=== PATIENT | male | born 1960 | race Caucasian/White ===

== ENCOUNTER 2016-09-08 07:07 | Day surgery (SDC) | payer OTHER ==
[~2016-09-08] VITALS: Ht 181.6 cm; Wt 72.6 kg
[~2016-09-08 07:07] MED LIST: ACTOS45 MG PO; ALDOMET250 MG PO; ALLOPURINOL100 MG PO; AMARYL4 MG PO; CALCIUM ACETAT667 MG PO; CARDIZEM CD300 MG PO; CLINDAMYCIN HC300 MG PO; COLCHICINE0.6 MG PO; DAILY VITAMIN1 EAC8 PO; DAILY VITE1 EAC1 PO; DIALYVITE 3,001 EACH PO; DIALYVITE 801 TABLET PO; DILAUDID2 MG PO; DILTIAZEM 24HR120 MG PO; DILTIAZEM 24HR180 MG PO; ELIPHOS667 MG PO; ENDOCET 5-3251 EAC1 PO; GLIMEPIRIDE2 MG PO; GRALISE300 MG PO; JANUVIA100 MG PO; KAYEXALATE15 GM/60 M PO; LABETALOL HCL100 MG PO; LABETALOL HCL200 MG PO; LASIX10 MG PO; MEN'S MULTI-VI1 EACH; MULTI-VITAMIN1 EAC4 PO; NEURONTIN300 MG PO; OXYCODONE HCL10 MG PO; PERCOCET 5/31 TABLET PO; PHENERGAN25 MG PR; Percocet 5/325,Endoc PO; Protonix PO; RENVELA800 MG PO; ROXICODONE5 MG PO; SENSIPAR60 MG PO; SIMVASTATIN40 MG PO; VITAMIN D2; VITAMIN D250000 UNIT PO; ZANTAC150 M1 PO; ZANTAC150 MG PO; ZESTRIL,PRINIVI20 MG PO; ZITHROMAX250 MG PO; ZOCOR40 MG PO; ZOFRAN4 MG PO
[2016-09-08] MEDS ORDERED: ASPIRIN81 M2 PO (07:27)
[2016-09-08 07:54] LABS: HEMATOCRIT 37.6 % (38.0-50.0); MCH 29.6 PG (29.0-34.0); MCHC 32.2 G/DL (30.0-36.0); MCV 91.9 FL (86-99); MEAN PLAT.VOLUME 10.4 uM^3 (9.0-12.4); PLATELET COUNT 222 K/uL (156-360); RBC DIS.WIDTH-CV 13.5 % (11.8-14.6); RBC DIS.WIDTH-SD 45.9 % (39-53); RED BLOOD COUNT 4.09 M/uL (4.00-5.50); WHITE BLOOD COUNT 7.9 K/uL (4.1-10.2)
[2016-09-08 08:17] LABS: ANION GAP 9 MEQ/L (2-14); CHLORIDE 98 MEQ/L (99-109); POTASSIUM 4.7 MEQ/L (3.7-5.4); SAMPLE HEMOLYSIS CHECK 0; SAMPLE ICTERIC CHECK 0; SAMPLE LIPEMIA CHECK 0; SODIUM 141 MEQ/L (136-147)
[2016-09-08 08:22] LABS: GFR ESTIMATE (CALCULATED) 10 mL/min/; GLUCOSE 111 mg/dL (70-99); UREA NITROGEN (BUN) 44 mg/dL (9-23)
== END 2016-09-08 14:05 | disposition home or self-care (01) ==
LOC: CATH 07:07
PROVIDERS: Internal Medicine Cardiovascular Disease
DX: I25.10 Atherosclerotic heart disease of native coronary artery without angina pectoris (principal); I25.82 Chronic total occlusion of coronary artery; I12.0 Hypertensive chronic kidney disease with stage 5 chronic kidney disease or end stage renal disease; E11.22 Type 2 diabetes mellitus with diabetic chronic kidney disease; N18.6 End stage renal disease; Z99.2 Dependence on renal dialysis; F17.210 Nicotine dependence, cigarettes, uncomplicated; Z82.49 Family history of ischemic heart disease and other diseases of the circulatory system; Z84.1 Family history of disorders of kidney and ureter
CPT/HCPCS: 80048; 85027; 93005; C1769; C1887; J1644; J2250; J3010

== ENCOUNTER 2016-09-21 08:23 | Day surgery (SDC) | payer OTHER ==
[~2016-09-21] VITALS: Ht 181.6 cm; Wt 72.6 kg
[~2016-09-21 08:23] MED LIST changes: +ASPIRIN81 M2 PO
[2016-09-21 10:42] LABS: METH RESISTANT S AUREUS PCR NEGATIVE (NEGATIVE); PROBE CHECK PASS; SPECIMEN PROCESSING CONTROL PASS
[2016-09-21 17:19] VITALS: BP 159/79
[2016-09-21 20:32] VITALS: BP 168/78
[2016-09-22 00:36] VITALS: BP 146/76
[2016-09-22 04:48] VITALS: BP 136/67
[2016-09-22 08:00] VITALS: BP 171/79
[2016-09-22] MEDS ORDERED: EFFIENT10 MG PO (09:37)
[2016-09-22] MEDS ORDERED: PRAVASTATIN SOD40 MG PO (09:37)
== END 2016-09-22 10:24 | disposition home or self-care (01) ==
LOC: CATH 08:23 → 2SOUTH 14:30 → 4EAST 14:30
PROVIDERS: Internal Medicine Cardiovascular Disease
DX: I25.10 Atherosclerotic heart disease of native coronary artery without angina pectoris (principal); I25.82 Chronic total occlusion of coronary artery; I12.0 Hypertensive chronic kidney disease with stage 5 chronic kidney disease or end stage renal disease; E11.22 Type 2 diabetes mellitus with diabetic chronic kidney disease; N18.6 End stage renal disease; Z99.2 Dependence on renal dialysis; I65.29 Occlusion and stenosis of unspecified carotid artery; Z82.49 Family history of ischemic heart disease and other diseases of the circulatory system; Z84.1 Family history of disorders of kidney and ureter
CPT/HCPCS: 80048; 85025; 85347; 87641; 93005; C1725; C1769; C1874; C1887; G0378; J0583; J1644; J2250; J3010; J7050